=== PATIENT | female | born 1960 | race Caucasian/White ===

== ENCOUNTER 2017-02-09 15:06 | Observation (INO) | payer BC, OTHER ==
[~2017-02-09 15:06] MED LIST: ATEN-100 PO; BLAC160C PO; CYCL-36 PO; DIAZ5 PO; DOCU1CAP39 PO; EVENCAP2 PO; FIORINAL2 PO; FISH1000 PO; MELO7.5T PO; NITR100 PO; PERC5TAB12 PO; TAB-TAB PO
[2017-02-09 15:09] VITALS: BP 169/77; PULSE 71; RESP 16; TEMP 97.6; O2SAT 100
--- NOTE | 2017-02-09 15:11 | PD ---
Physical Exam Time Seen by Provider: 15:09 Narrative 56yo F c/o midsternal chest pain and SOB x 1 hour. Pain is constant. Denies cardiac hx. Patient seen in triage. VS reviewed. Patient awaiting bed placement. MDM Supervised Visit with SONYA: Paula Redd Feb 09, 2017 15:11
[2017-02-09 16:33] LABS: BASOPHIL # 0.1 TH/MM3 (0-0.2); BASOPHIL % 0.7 % (0.0-2.0); EOSINOPHIL # 0.5 TH/MM3 (0-0.4); EOSINOPHIL % 5.8 % (0.0-4.0); HEMATOCRIT 39.9 % (35.0-46.0); HEMO FLAGS DIFF FINAL; LYMPH % 23.8 % (9.0-44.0); LYMPHOCYTE # 1.9 TH/MM3 (1.0-4.8); MEAN CELL VOLUME 97.8 FL (80.0-100.0); MEAN CORPUSCULAR HEMOGLOBIN 32.2 PG (27.0-34.0); MEAN CORPUSCULAR HGB CONC 32.9 % (32.0-36.0); MONO % 5.4 % (0.0-8.0); NEUT % 64.3 % (16.0-70.0); PLATELET COUNT 243 TH/MM3 (150-450); RED BLOOD COUNT 4.08 MIL/MM3 (4.00-5.30); RED CELL DISTRIBUTION WIDTH 14.3 % (11.6-17.2); WHITE BLOOD COUNT 7.8 TH/MM3 (4.0-11.0)
--- NOTE | 2017-02-09 16:37 | RADRPT ---
EXAM DATE/TIME: 02/09/2017 15:20 [facility] COMPARISON: CHEST PA & LAT, May 02, 2014, 10:06. INDICATIONS : Chest pain. MEDICAL HISTORY : Smoker. SURGICAL HISTORY : None. ENCOUNTER: Initial ACUITY: 1 day PAIN SCORE: 10/10 LOCATION: Bilateral chest FINDINGS: PA and lateral views of the chest demonstrate the lungs to be symmetrically aerated without evidence of mass, infiltrate or effusion. The cardiomediastinal contours are unremarkable. Osseous structure s are intact. CONCLUSION: 1. No acute cardiopulmonary disease. James Sparks MD on February 09, 2017 at 16:34 Board Certified Radiologist. This report was verified electronically.
[2017-02-09 16:42] LABS: APTT (PATIENT) 28.1 SEC (24.3-30.1); INTERNATIONAL NORMALIZED RATIO 0.9 RATIO; PROTHROMBIN TIME - PATIENT 10.3 SEC (9.8-11.6)
[2017-02-09 16:51] LABS: ANION GAP 5 MEQ/L (5-15); BICARBONATE 28.1 MEQ/L (21.0-32.0); BLOOD UREA NITROGEN 17 MG/DL (7-18); CHLORIDE 107 MEQ/L (98-107); GLOMERULAR FILTRATION RATE 41 ML/MIN (>89); POTASSIUM 4.8 MEQ/L (3.5-5.1); SODIUM (NA) 140 MEQ/L (136-145)
[2017-02-09 17:09] LABS: CREATINE KINASE 53 U/L (26-192)
--- NOTE | 2017-02-09 18:42 | PD ---
HPI Chief Complaint: Cardiac Complaint Time Seen by Provider: 18:41 Travel History International Travel<30 days: No Contact w/Intl Traveler<30days: No Traveled to known affect area: No History of Present Illness HPI 56 YO F with PMH of chronic back pain, HTN presents to the ED for evaluation of sudden onset, central CP. Onset at rest at ~930am. Described as constant, lasting 2-1/2 hours before subsiding spontaneously. Patient denies associated palpitations, nausea, vomiting, shortness of breath, diaphoresis. She never had a similar pain. Symptoms are resolved on presentation. She has a 37-pack- year smoking history. She endorses cardiac issues and extended family members. She's never had a cardiac workup. PFSH Past Medical History Cancer: No Cardiovascular Problems: No Diabetes: No Endocrine: No Glaucoma: No Genitourinary: Yes (STONES; HX UTI) Hepatitis: No Hiatal Hernia: No Hypertension: No Immune Disorder: No Musculoskeletal: Yes (ARTHRITIS; BACK SX HX- NECK PAIN) Neurologic: No Reproductive: No Respiratory: No Thyroid Disease: No Past Surgical History Body Medical Devices: PLATE BACK Genitourinary Surgery: Yes (LITHOTRIPSY; STENT PLACEMENT; ESWL X 2) Gynecologic Surgery: Yes (TUBAL LIGATION; D&C; HYSTERECTOMY) Social History Alcohol Use: Yes (rare occ) Tobacco Use: Yes (pt on chantix smoking occ) Allergies-Medications (Allergen,Severity, Reaction): Coded Allergies: No Known Allergies (Verified , 04/30/14) Reported Meds & Prescriptions Reported Meds & Active Scripts Active Reported Valium (Diazepam) 2 Mg Tab 2 Mg PO HS PRN Atenolol 50 Mg Tab 50 Mg PO DAILY Flexeril (Cyclobenzaprine HCl) 10 Mg Tab 10 Mg PO TID Oxycodone (Oxycodone HCl) 10 Mg Tab 10 Mg PO Q6H PRN Review of Systems Except as stated in HPI: all other systems reviewed are Neg Physical Exam Narrative GENERAL: Well-nourished, well-developed thin white female in no acute distress. SKIN: Focused skin assessment warm/dry. HEAD: Normocephalic. EYES: No scleral icterus. No injection or drainage. NECK: Supple, trachea midline. No JVD or lymphadenopathy. CARDIOVASCULAR: Regular rate and rhythm without murmurs, gallops, or rubs. RESPIRATORY: Breath sounds clear and equal bilaterally. No accessory muscle use. GASTROINTESTINAL: Abdomen soft, non-tender, nondistended. Active bowel sounds. MUSCULOSKELETAL: No cyanosis, or edema. BACK: Nontender without obvious deformity. No CVA tenderness. Data Data Last Documented VS Vital Signs Date Time Temp Pulse Resp B/P Pulse Ox O2 Delivery O2 Flow Rate FiO2 02/09/17 19:30 65 18 154/88 98 Room Air 02/09/17 15:09 97.6 Orders Electrocardiogram (02/09/17 15:10) Complete Blood Count With Diff (02/09/17 15:10) Basic Metabolic Panel (Bmp) (02/09/17 15:10) Ckmb (Isoenzyme) Profile (02/09/17 15:10) Troponin I (02/09/17 15:10) Iv Access Insert/Monitor (02/09/17 15:10) Ecg Monitoring (02/09/17 15:10) Oxygen Administration (02/09/17 15:10) Oximetry (02/09/17 15:10) Prothrombin Time / Inr (Pt) (02/09/17 15:10) Act Partial Throm Time (Ptt) (02/09/17 15:10) Chest, Pa & Lat (02/09/17 15:10) Oxycodone-Acetamin 10-325 Mg (Percocet 1 (02/09/17 19:45) Place In Observation (02/09/17 19:34) Activity Bed Rest With Brp (02/09/17 19:34) Vital Signs (Adult) Q4H (02/09/17 19:34) Cardiac Rhythm .As Directed (02/09/17 19:34) Notify Dr: Other .PRN (02/09/17 19:34) Notify . Parameters (02/09/17 19:34) Resp Oxygen Nasal Cannula (02/09/17 ) Ckmb (Isoenzyme) Profile (02/09/17 19:34) Ckmb (Isoenzyme) Profile (02/09/17 22:34) Troponin I (02/09/17 19:34) Troponin I (02/09/17 22:34) Electrocardiogram (02/09/17 19:34) Electrocardiogram (02/09/17 22:34) ^ Obtain (02/09/17 19:34) Sodium Chloride 0.9% Flush (Ns Flush) (02/09/17 19:45) Sodium Chloride 0.9% Flush (Ns Flush) (02/09/17 21:00) Accountant Manager / Telemetry [email or web address].[email or web address] (02/09/17 19:34) Admit Order (Ed Use Only) (02/09/17 19:34) Labs Laboratory Tests Test 02/09/17 16:25 White Blood Count 7.8 TH/MM3 Red Blood Count 4.08 MIL/MM3 Hemoglobin 13.1 GM/DL Hematocrit 39.9 % Mean Corpuscular Volume 97.8 FL Mean Corpuscular Hemoglobin 32.2 PG Mean Corpuscular Hemoglobin 32.9 % Concent Red Cell Distribution Width 14.3 % Platelet Count 243 TH/MM3 Mean Platelet Volume 8.9 FL Neutrophils (%) (Auto) 64.3 % Lymphocytes (%) (Auto) 23.8 % Monocytes (%) (Auto) 5.4 % Eosinophils (%) (Auto) 5.8 % Basophils (%) (Auto) 0.7 % Neutrophils # (Auto) 5.0 TH/MM3 Lymphocytes # (Auto) 1.9 TH/MM3 Monocytes # (Auto) 0.4 TH/MM3 Eosinophils # (Auto) 0.5 TH/MM3 Basophils # (Auto) 0.1 TH/MM3 CBC Comment DIFF FINAL Differential Comment Prothrombin Time 10.3 SEC Prothromb Time International 0.9 RATIO Ratio Activated Partial 28.1 SEC Thromboplast Time Sodium Level 140 MEQ/L Potassium Level 4.8 MEQ/L Chloride Level 107 MEQ/L Carbon Dioxide Level 28.1 MEQ/L Anion Gap 5 MEQ/L Blood Urea Nitrogen 17 MG/DL Creatinine 1.33 MG/DL Estimat Glomerular Filtration 41 ML/MIN Rate Random Glucose 100 MG/DL Calcium Level 9.4 MG/DL Total Creatine Kinase 53 U/L Troponin I LESS THAN 0.02 NG/ML MDM Medical Decision Making Medical Screen Exam Complete: Yes Emergency Medical Condition: Yes Differential Diagnosis chest pain versus PNA versus ACS versus GERD versus other Narrative Course 56 YO F with PMH of chronic back pain, HTN presents to the ED for evaluation of sudden onset, central CP. Onset at rest at ~930am. Described as constant, lasting 2-1/2 hours before subsiding spontaneously. Patient denies associated palpitations, nausea, vomiting, shortness of breath, diaphoresis. She never had a similar pain. She has a [id number] smoking history. She endorses cardiac issues and extended family members. She's never had a cardiac workup. Vitals reviewed. Patient is well-appearing on physical exam. No appreciable M/ R/G, Chest CTAB, abdomen soft, nontender. No concerning abnormalities a CBC, CMP, coags. Cardiac enzymes negative 1. EKG rate 59, sinus bradycardia, [place] interval 150, QRS 93, QTC [address] elevation with normally inflected T waves. No acute changes. Reviewed by Dr. Alonso. Test results the workup with the patient. She is agreeable to admission to the [facility]. Please see [facility] notes for disposition. Padma Maurer Feb 09, 2017 18:42
[2017-02-09 18:47] VITALS: O2SAT 99
[2017-02-09] MEDS ORDERED: OXYC-395 PO (18:51)
[2017-02-09] MEDS ORDERED: ATEN50TA PO (18:51)
[2017-02-09] MEDS ORDERED: CYCL1TAB29 PO (18:51)
[2017-02-09] MEDS ORDERED: DIAZ2 PO (18:51)
[2017-02-09 19:30] VITALS: BP 154/88; PULSE 65; RESP 18; O2SAT 98
[2017-02-09] MEDS ORDERED: SODIUM CHLORIDE 0.9% FLUSH 10 ML FLUSH IV FLUSH PRN (19:45)
[2017-02-09] MEDS ORDERED: oxyCODONE/ACETAMINOPHEN 10 MG/325 MG TAB PO ONE (19:45)
[2017-02-09] MEDS: SODIUM CHLORIDE 0.9% FLUSH 10 ML FLUSH IV FLUSH SCH (21:02)
[2017-02-09 21:28] LABS: CREATINE KINASE 42 U/L (26-192)
[2017-02-09 22:13] VITALS: BP 136/84; PULSE 67; RESP 17; TEMP 98.3; O2SAT 99
[2017-02-09 23:08] LABS: CREATINE KINASE 45 U/L (26-192)
[2017-02-10 00:11] VITALS: PULSE 69
[2017-02-10 00:35] VITALS: BP 98/60; PULSE 62; RESP 17; TEMP 97.6; O2SAT 94
[2017-02-10 03:31] VITALS: PULSE 59
[2017-02-10 04:27] VITALS: BP 110/58; PULSE 60; RESP 17; TEMP 98.3; O2SAT 97
[2017-02-10 07:22] VITALS: BP 130/72; PULSE 59; RESP 20; TEMP 97.6; O2SAT 98
[2017-02-10 08:00] VITALS: PULSE 59
[2017-02-10] MEDS: SODIUM CHLORIDE 0.9% FLUSH 10 ML FLUSH IV FLUSH SCH (08:04)
[2017-02-10] MEDS ORDERED: IBUPROFEN 600 MG TAB PO ONE (08:15)
[2017-02-10] MEDS ORDERED: ATENOLOL 50 MG TAB PO SCH (09:00)
[2017-02-10] MEDS ORDERED: CYCLOBENZAPRINE HCL 10 MG TAB PO SCH (09:00)
--- NOTE | 2017-02-10 10:09 | HHI.HP ---
HPI Primary Care Physician Brian Murillo, Chief Complaint Chest pain History of Present Illness Mrs. sOman is a 56-year-old female patient with a known medical history of hypertension and tobacco abuse who presented to the ED with complaints of chest pain. Patient states while she was sitting on the couch yesterday morning she noticed a sudden midsternal chest tightness and pressure, constant in nature, lasting roughly 1.5 hours. Denies any radiation. Denies any known aggravating or relieving factors. States she attempted every position to relieve the pain with no relief. Eventually pain gradually subsided. Does admit to mild nausea and mild difficulty catching a breath with the presence of pain. Denies any associated vomiting or diaphoresis. Denies any recent life changes or increasing stress. Admits to current tobacco use and a [id number] smoking history. Review of Systems Cardiovascular: COMPLAINS OF: Chest pain Gastrointestinal: COMPLAINS OF: Nausea Past Family Social History Allergies: Coded Allergies: No Known Allergies (Verified , 04/30/14) Past Medical History Chronic back and neck pain Herniated lumbar discs Hypertension Tobacco abuse Carpal tunnel Past Surgical History Lumbar fusion with plates and cyst removal 2012 Urethral stents Tubal ligation Hysterectomy Reported Medications Reported Meds & Active Scripts Active Reported Valium (Diazepam) 2 Mg Tab 2 Mg PO HS PRN Atenolol 50 Mg Tab 50 Mg PO DAILY Flexeril (Cyclobenzaprine HCl) 10 Mg Tab 10 Mg PO TID Oxycodone (Oxycodone HCl) 10 Mg Tab 10 Mg PO Q6H PRN Active Ordered Medications Current Medications Medications (Trade) Dose Ordered Sig/[place] Route Start Time Stop Time Status Last Admin (NS Flush) 2 ml UNSCH PRN IV FLUSH 02/09/17 19:45 (NS Flush) 2 ml BID IV FLUSH 02/09/17 21:00 02/10/17 08:04 (Tenormin) 50 mg DAILY PO 02/10/17 09:00 (Flexeril) 10 mg TID PO 02/10/17 09:00 (Roxicodone) 10 mg Q6H PRN PO 02/10/17 09:00 Family History Maternal family medical history significant for hypertension, hyperlipidemia and colon cancer. Paternal family medical history significant for hypertension and hyperlipidemia. Social History Patient is . Does admit to current tobacco use and a [id number] smoking history. Denies any alcohol use. Denies any illicit drug use. Previous cardiac testing No previous cardiac testing. Physical Exam Vital Signs Vital Signs Date Time Temp Pulse Resp B/P Pulse Ox O2 Delivery O2 Flow Rate FiO2 02/10/17 08:00 59 02/10/17 07:22 97.6 59 20 130/72 98 02/10/17 04:27 98.3 60 17 110/58 97 02/10/17 03:31 59 02/10/17 00:35 97.6 62 17 98/60 94 02/10/17 00:11 69 02/09/17 22:13 98.3 67 17 136/84 99 02/09/17 21:02 98 Room Air 02/09/17 19:30 65 18 154/88 98 Room Air 02/09/17 18:47 99 02/09/17 15:09 97.6 71 16 169/77 100 Physical Exam GENERAL: Well-nourished, well-developed female patient, lying in bed in no apparent distress. SKIN: Warm and dry. No rash. HEENT: Atraumatic. Normocephalic. Pupils equal and round. No scleral icterus. No injection or drainage. No nasal bleeding or discharge. Mucous membranes pink and moist. NECK: Trachea midline. No JVD. CARDIOVASCULAR: Regular rate and rhythm. No murmur appreciated. RESPIRATORY: No accessory muscle use. Clear to auscultation. Breath sounds equal bilaterally. GASTROINTESTINAL: Abdomen soft, non-tender, nondistended. MUSCULOSKELETAL: Extremities without clubbing, cyanosis, or edema. No obvious deformities. NEUROLOGICAL: Awake and alert. No obvious cranial nerve deficits. Motor grossly within normal limits. Five out of 5 muscle strength in the arms and legs. Normal speech. PSYCHIATRIC: Appropriate mood and affect; insight and judgment normal. Laboratory Laboratory Tests Test 02/09/17 02/09/17 02/09/17 16:25 20:45 22:10 White Blood Count 7.8 Red Blood Count 4.08 Hemoglobin 13.1 Hematocrit 39.9 Mean Corpuscular Volume 97.8 Mean Corpuscular Hemoglobin 32.2 Mean Corpuscular Hemoglobin 32.9 Concent Red Cell Distribution Width 14.3 Platelet Count 243 Mean Platelet Volume 8.9 Neutrophils (%) (Auto) 64.3 Lymphocytes (%) (Auto) 23.8 Monocytes (%) (Auto) 5.4 Eosinophils (%) (Auto) 5.8 Basophils (%) (Auto) 0.7 Neutrophils # (Auto) 5.0 Lymphocytes # (Auto) 1.9 Monocytes # (Auto) 0.4 Eosinophils # (Auto) 0.5 Basophils # (Auto) 0.1 CBC Comment DIFF FINAL Differential Comment Prothrombin Time 10.3 Prothromb Time International 0.9 Ratio Activated Partial 28.1 Thromboplast Time Sodium Level 140 Potassium Level 4.8 Chloride Level 107 Carbon Dioxide Level 28.1 Anion Gap 5 Blood Urea Nitrogen 17 Creatinine 1.33 Estimat Glomerular Filtration 41 Rate Random Glucose 100 Calcium Level 9.4 Total Creatine Kinase 53 42 45 Troponin I LESS THAN 0.02 LESS THAN 0.02 LESS THAN 0.02 Result Diagram: 02/09/17 1625 02/09/17 1625 Imaging Last 24 hours Impressions Chest X-Ray 02/09/17 1510 Signed Impressions: Service Date/Time: Thursday, February 09, 2017 15:20 - CONCLUSION: 1. No acute cardiopulmonary disease. James Sparks MD Assessment and Plan Assessment and Plan * Atypical chest pain: Admitted to chest pain center. Serial EKGs and serial troponins ordered for ruling out purposes. Patient seen and examined by Dr. Rina Lima in the chest pain center and will have a Ketan protocol ETT. She will be discharged home if her stress test is nonischemic and given instructions to follow up with PCP. * Hypertension: Continue home atenolol. * Tobacco abuse: Encouraged cessation. * Chronic back and neck pain: Given Ibuprofen prior to treadmill stress test. Patient is currently stable and agreeable to the plan. Jhonathan Mario Feb 10, 2017 10:09
--- NOTE | 2017-02-10 11:28 | HHI.DCPOC ---
Discharge Care Plan Diagnosis: (1) Chest pain (2) Hypertension (3) Chronic back pain (4) Tobacco abuse Goals to Promote Your Health * To prevent worsening of your condition and complications * To maintain your health at the optimal level Directions to Meet Your Goals Take your medications as prescribed Follow your dietary instruction Follow activity as directed Keep your appointments as scheduled Take your immunizations and boosters as scheduled If your symptoms worsen call your PCP, if no PCP go to Urgent Care Center or Emergency Room Smoking is Dangerous to Your Health. Avoid second hand smoke Call the 24-hour hour crisis hotline for domestic abuse at Jhonathan Mario Feb 10, 2017 11:28
--- NOTE | 2017-02-10 17:18 | TR ---
Date Performed: 02/10/2017 Time Performed: 11:06:14 DOCTOR: Rina Lima DRUG LIST: CLINICAL HISTORY: REASON FOR TEST: Chest pain REASON FOR ENDING: OBSERVATION: CONCLUSION: Ketan protocol performed. Test stopped secondary to reaching maximum heart rate targ et secondary to shortness of breath. No reproducible chest discomfort or pain. Occassional PAC. Maxim um DE=437 % Target HR Achieved=85.0% Maximum JA=987/100 Total Exercise Time=9:00 COMMENTS:
--- NOTE | 2017-02-10 17:27 | EKG ---
Date Performed: 02/09/2017 Time Performed: 20:44:59 PTAGE: 56 years EKG: SINUS BRADYCARDIA BORDERLINE ECG Since PREVIOUS TRACING , no significant change noted PREVIOUS TRACIN02/09/2017 15.49 DOCTOR: Rina Lima Interpretating Date/Time 02/10/2017 17:26:14
--- NOTE | 2017-02-10 17:31 | EKG ---
Date Performed: 02/09/2017 Time Performed: 15:49:45 PTAGE: 56 years EKG: Sinus rhythm NORMAL ECG Since PREVIOUS TRACING , no significant change noted PREVIOUS TRACIN04/30/2014 07.50 DOCTOR: Rina Lima Interpretating Date/Time 02/11/2017 07:57:38
== END 2017-02-10 12:03 | disposition home or self-care (01) ==
LOC: NEPE 15:06 → NEDA 19:36 → NEPGCP 22:08
PROVIDERS: ADMIT Internal Medicine Cardiovascular Disease; ATTEND Internal Medicine Cardiovascular Disease
DX: R07.89 Other chest pain (principal); I10 Essential (primary) hypertension; M54.9 Dorsalgia, unspecified; G89.29 Other chronic pain; F17.200 Nicotine dependence, unspecified, uncomplicated; Z79.899 Other long term (current) drug therapy
CPT/HCPCS: 71020; 80048; 82550; 84484; 85025; 85610; 85730; 93005; 93017; 99285; G0378